=== PATIENT | female | born 2000 | race Caucasian/White ===

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

== ENCOUNTER 2019-01-15 17:33 | Emergency (ER) | payer MEDICAID ==
[~2019-01-15] VITALS: Ht 162.6 cm; Wt 75.8 kg
[~2019-01-15 17:33] MED LIST changes: +HYDR-4011 PO
[2019-01-15 17:47] VITALS: Ht 162.6 cm; Wt 75.8 kg
[2019-01-15] MEDS ORDERED: NPH10OT LEFT EAR (21:29)
--- NOTE | 2019-01-15 21:32 | ERD ---
ER Documentation Chief Complaint Chief Complaint left ear pain x 4 days HPI 19-year-old female presents to the emergency department complaining of left ear pain intermittently for the past 4 days. Symptoms are mild to moderate in severity. She denies any fevers or chills or other symptoms at this time. ROS All systems reviewed and are negative except as per history of present illness. Medications Home Meds Active Scripts Neomycin/Polymyxin/Hydrocort* (Cortisporin* Otic) 10 Ml Susp, 4 DROP LEFT EAR QID, #1 EA Prov:ELI BROWN PA-C 01/15/19 Ibuprofen* (Motrin*) 600 Mg Tab, 600 MG PO Q6H PRN for PAIN AND OR ELEVATED TEMP, #30 TAB Prov:RAMBO PEREZ DO 10/27/18 Hydrocodone/Acetaminophen ([place] 5-325 Tablet) 1 Each Tablet, 1 EACH PO Q6H PRN for PAIN, #10 TAB Prov:RAMBO PEREZ DO 10/27/18 Hydrocortisone* Topical (Hydrocortisone* Topical) 2.5%-28.3 Gm Cream..g., 1 APPLIC TOP BID for 10 Days, #1 TUB Prov:SOLEDAD FELIX MD 02/06/18 Cetirizine Hcl* (Zyrtec*) 10 Mg Capsule, 10 MG PO DAILY, #15 TAB.CHEW Prov:SOLEDAD FELIX MD 02/06/18 Azithromycin* (Zithromax*) 250 Mg Tablet, 250 MG PO .ZPACK DIRECTED, #6 TAB TAKE 500 MG (2 TABS) THE FIRST DAY THEN 250 MG (1 TAB) DAYS 2-5 Prov:RAMBO COOK PA-C 11/18/17 Diphenhydramine Hcl* (Benadryl*) 25 Mg Cap, 25 MG PO Q6, #30 CAP Prov:GRACIE STUBBS PA-C 10/14/17 Ciprofloxacin Hcl* (Ciprofloxacin Hcl*) 500 Mg Tablet, 500 MG PO BID for 10 Days, TAB Prov:GRACIE STUBBS PA-C 10/14/17 Ibuprofen* (Motrin*) 600 Mg Tab, 600 MG PO Q6, #30 TAB Prov:GRACIE STUBBS PA-C 10/14/17 Ondansetron (Ondansetron Odt) 4 Mg Tab.rapdis, 4 MG PO Q6H PRN for NAUSEA AND/OR VOMITING, #10 TAB Prov:GRACIE STUBBS PA-C 10/14/17 Baclofen* (Baclofen*) 10 Mg Tablet, 10 MG PO BID for 3 Days, #6 TAB Prov:MANAGUELOD,TRINITY P RETAIL LEASING AGENT 04/17/16 Ibuprofen* (Motrin*) 400 Mg Tab, 400 MG PO Q6, #30 TAB Prov:MANAGUELOD,TRINITY P RETAIL LEASING AGENT 04/17/16 Allergies Allergies: Coded Allergies: ceftriaxone (Verified Allergy, Intermediate, 01/15/19) RASHES PMhx/Soc History of Surgery: Yes (Appendectomy) Anesthesia Reaction: No Hx Neurological Disorder: No Hx Respiratory Disorders: No Hx Cardiac Disorders: No Hx Psychiatric Problems: No Hx Miscellaneous Medical Probl: No Hx Alcohol Use: No Hx Substance Use: No Hx Tobacco Use: No Smoking Status: Never smoker FmHx Family History: No diabetes Physical Exam Vitals Vital Signs Date Temp Pulse Resp B/P (MAP) Pulse Ox O2 O2 Flow FiO2 Time Delivery Rate 01/15/19 98.4 82 18 156/82 96 17:47 (106) Physical Exam Const: No acute distress Head: Atraumatic Eyes: Normal Conjunctiva ENT: Normal External Ears, Nose and Mouth.Mild edema and moisture noted in the left EAC. TM is not erythematous and nonbulging. Right TM and EAC are within normal limits. Neck: Full range of motion. No meningismus. Resp: Clear to auscultation bilaterally Cardio: Regular rate and rhythm, no murmurs Skin: No petechiae or rashes Ext: No cyanosis, or edema Neur: Awake and alert Psych: Normal Mood and Affect Procedures/MDM 19-year-old female presents the emergency department with signs and symptoms most consistent with uncomplicated left otitis externa. No evidence of peritonsillar abscess, retropharyngeal abscess, serous bacterial infection, sepsis, meningitis, mastoiditis, or other emergencies. The patient will be treated as an outpatient with Cortisporin otic drops. She was advised to return the department immediately for any new or worsening or concerning symptoms. She understands and agrees with plan. Patient's blood pressure was elevated (>120/80) but appears stable without evidence of hypertension emergency or urgency. The patient is to follow-up and pursue outpatient monitoring and therapy with their primary care physician within 1 week and return immediately if they have any new, worsening, or concerning symptoms. Departure Diagnosis: Primary Impression: Right ear pain Condition: Fair Patient Instructions: External Ear Infection (Adult) Referrals: [facility] Usted se castro hecho un examen mdico de control que le indica que no est en alanna condicin que requiera tratamiento urgente en el Departamento de Emergencia. Un estudio ms profundo y el tratamiento de kiran condicin pueden esperar sin ningn riesgo hasta que usted sea atendida/o en el consultorio de kiran mdico o alanna clnica. Es responsabilidad suya arreglar alanna jerrod para el seguimiento del evens. MANEJO DE CONDICIONES NO URGENTES EN EL FUTURO 1) Si usted tiene un mdico de atencin primaria: Usted debera llamar a kiran mdico de atencin primaria antes de venir al departamento de emergencia. Despus de las horas de consultorio, kiran doctor o kiran asociado/a est disponible por telfono. El mdico o enfermero de david en el servicio telefnico puede asesorarle por marlee medio para atender el problema, o evens contrario se puede programar alanna jerrod. 2) Si usted no tiene un mdico de atencin primaria: Llame al mdico o clnica de referencia que aparece abajo brianna las horas de consultorio para hacer alanna jerrod para que le vean. CLINICAS: [facility] [phone] [facility] [phone] [facility] [phone] [address] [place] [phone] [place] [id number] [phone] [facility] [phone] [address] Additional Instructions: Llame al doctor MAANA y pauly alanna JERROD PARA DENTRO DE 1-2 THOMSON.Dgale a la secretaria que nosotros le instruimos hacer esta jerrod.Avise o llame si kiran condicin se empeora antes de la jerrod. Regresa aqui si peor o no mejor. ELI BROWN PA-C Jan 15, 2019 21:32
[2019-01-15 21:38] VITALS: BP 127/69; PULSE 72; RESP 18
== END 2019-01-15 21:41 | disposition home or self-care (01) ==
LOC: FTE 17:33
DX: H92.02 Otalgia, left ear (principal)
CPT/HCPCS: 99283